=== PATIENT | female | born 1970 | race Caucasian/White ===

== ENCOUNTER 2025-01-14 04:19 | Emergency (ER) | payer OTHER, SELFPAY ==
[2025-01-14] MEDS ORDERED: ACETAMINOPHEN 500 MG TAB ONE (06:11)
[2025-01-14] MEDS ORDERED: CEPHALEXIN 250 MG CAP ONE (06:11)
[2025-01-14] MEDS ORDERED: LIDOCAINE 1% 20 ML MDV ONE (06:11)
[2025-01-14] MEDS ORDERED: IBUPROFEN 400 MG TAB ONE (06:12)
[2025-01-14] MEDS ORDERED: ONDANSETRON 4 MG (ODT) TAB ONE (06:12)
[2025-01-14] MEDS ORDERED: SMZ./TMP. 800/160 MG TABLET ONE (06:12)
[2025-01-14 06:22] LABS: Anion Gap 7.6 mEq/L (5.0-15.0); Potassium 3.6 mEq/L (3.5-5.1)
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
[2025-01-14 07:24] VITALS: BP 159/79; TEMP 97.2; O2SAT 100
== END 2025-01-14 07:14 | disposition home or self-care (01) ==
LOC: ER 04:19
DX: E11.65 Type 2 diabetes mellitus with hyperglycemia (principal); L08.9 Local infection of the skin and subcutaneous tissue, unspecified
CPT/HCPCS: 36415; 80048; 99283; J2003; Q0162